=== PATIENT | male | born 1955 | race Caucasian/White ===

== ENCOUNTER 2020-02-10 02:31 | Inpatient (IN) | payer BC, MEDICAID, SELFPAY ==
[~2020-02-10] VITALS: Ht 182.9 cm; Wt 94.8 kg
[2020-02-10 02:31] VITALS: BP_SYST 152
[2020-02-10] MEDS ORDERED: AZITHROMYCIN 250 MG TABLET PO ONE (03:00)
[2020-02-10] MEDS ORDERED: cefTRIAXone 1 GM in LIDOCAINE 1%, 20 ML MDV 2.1 ML IM ONE (03:00)
[2020-02-10 03:47] LABS: CALCIUM 7.8 mg/dL (8.4-11.0); CREATININE 2.13 mg/dL (0.55-1.30); POTASSIUM 4.1 mmol/L (3.5-5.1)
[2020-02-10 03:48] LABS: C-REACTIVE PROTEIN QUANT 10.2 mg/dL (0-0.5)
[2020-02-10 03:49] LABS: BASOPHILS % (AUTO) 0.1 % (0.0-2.0); EOSINOPHILS % (AUTO) 0.1 % (0.0-4.0); HEMOGLOBIN 14.6 g/dL (14.0-18.0); LYMPHOCYTES # (AUTO) 0.4 K/uL (1.0-5.5); LYMPHOCYTES % (AUTO) 5.4 % (20.5-51.5); MEAN CORPUSCULAR HEMOGLOBIN 31 pg (27-31); MEAN CORPUSCULAR HGB CONC 34 % (32-36); MEAN CORPUSCULAR VOLUME 92 fL (79.0-98.0); MONOCYTES # (AUTO) 0.6 K/uL (0.0-1.0); MONOCYTES % (AUTO) 6.6 % (1.7-9.3); NEUTROPHILS # (AUTO) 7.3 K/uL (1.8-7.7); NEUTROPHILS % (AUTO) 87.8 % (40.0-70.0); PLATELET COUNT (AUTO) 144 K/uL (130-430); RED BLOOD CELL COUNT(AUTO) 4.67 MIL/uL (4.2-6.2); RED CELL DISTRIBUTION WIDTH 14.2 % (9.0-15.0); WHITE BLOOD COUNT (AUTO) 8.3 K/uL (4.8-10.8)
[2020-02-10 03:53] LABS: ALBUMIN 2.5 g/dL (3.4-4.8); TOTAL BILIRUBIN 1.6 mg/dL (0.0-1.0)
[2020-02-10 04:13] LABS: PROTHROMBIN TIME 9.9 SECS (9.5-12.5)
[2020-02-10] MEDS ORDERED: ACETAMINOPHEN 500 MG TABLET PO ONE (04:15)
[2020-02-10] MEDS ORDERED: cefTRIAXone 1 GM VIAL ONE (05:46)
[2020-02-10] MEDS ORDERED: LIDOCAINE 1%, 20 ML MDV 20 ML ONE (05:46)
[2020-02-10] MEDS ORDERED: AZITHROMYCIN 250 MG TABLET ONE (05:47)
[2020-02-10] MEDS ORDERED: DEXAMETHASONE SOD PHOSPHATE 4 MG/ML VIAL IVP ONE (06:15)
[2020-02-10] MEDS ORDERED: MORPHINE 2 MG/ML INJ. SYRINGE IVP ONE (06:15)
[2020-02-10] MEDS ORDERED: ONDANSETRON HCL 4 MG/2 ML VIAL IVP PRN (20:00)
[2020-02-10] MEDS: D5/0.45 NS 1,000 ML IV SCH (20:30)
[2020-02-10] MEDS ORDERED: ALBUTEROL SULFATE 0.083% 2.5 MG/3 ML VIAL.NEB INH SCH (23:00)
[2020-02-10] MEDS ORDERED: IPRATROPIUM BROM 0.5 MG/2.5 ML VIAL.NEB (ATROVENT) INH SCH (23:00)
[2020-02-11] MEDS ORDERED: LORazepam 2 MG/ML VIAL ONE
[2020-02-11] MEDS: LORazepam 2 MG/ML VIAL IVP PRN (00:08)
[2020-02-11 01:47] VITALS: BP_SYST 157
[2020-02-11 06:35] LABS: BASOPHILS % (AUTO) 0.3 % (0.0-2.0); HEMATOCRIT 42.2 % (36-54); HEMOGLOBIN 14.6 g/dL (14.0-18.0); LYMPHOCYTES # (AUTO) 0.3 K/uL (1.0-5.5); LYMPHOCYTES % (AUTO) 3.3 % (20.5-51.5); MEAN CORPUSCULAR HEMOGLOBIN 32 pg (27-31); MEAN CORPUSCULAR HGB CONC 35 % (32-36); MEAN CORPUSCULAR VOLUME 91 fL (79.0-98.0); MONOCYTES # (AUTO) 0.6 K/uL (0.0-1.0); MONOCYTES % (AUTO) 5.7 % (1.7-9.3); NEUTROPHILS # (AUTO) 9.6 K/uL (1.8-7.7); NEUTROPHILS % (AUTO) 90.7 % (40.0-70.0); PLATELET COUNT (AUTO) 154 K/uL (130-430); RED BLOOD CELL COUNT(AUTO) 4.62 MIL/uL (4.2-6.2); RED CELL DISTRIBUTION WIDTH 13.7 % (9.0-15.0)
[2020-02-11] MEDS: D5/0.45 NS 1,000 ML IV SCH ×2 (06:51→13:49)
[2020-02-11 06:58] LABS: ALBUMIN 2.2 g/dL (3.4-4.8); CALCIUM 7.9 mg/dL (8.4-11.0); CREATININE 1.9 mg/dL (0.55-1.30); PHOSPHORUS 2.1 mg/dL (2.7-4.5); POTASSIUM 4.4 mmol/L (3.5-5.1); TOTAL BILIRUBIN 1.1 mg/dL (0.0-1.0)
[2020-02-11 07:44] LABS: C-REACTIVE PROTEIN QUANT 13.1 mg/dL (0-0.5)
[2020-02-11] MEDS ORDERED: cefTRIAXone 1 GM IVPB PREMIX 50 ML IV ONE (07:54)
[2020-02-11] MEDS: cefTRIAXone 1 GM IVPB PREMIX 50 ML IV SCH (07:55)
[2020-02-11 07:58] LABS: WHITE BLOOD COUNT (AUTO) 10.5 K/uL (4.8-10.8)
[2020-02-11] MEDS: ALBUTEROL MDI INHALATION 8 GM INH INH SCH ×5 (08:05→23:33)
[2020-02-11 08:55] LABS: BILIRUBIN,URINE NEGATIVE (NEGATIVE); BLOOD, URINE 1+ (NEGATIVE); COLOR,URINE YELLOW (YELLOW); GLUCOSE,URINE 3+ (NEGATIVE); KETONES,URINE TRACE (NEGATIVE); LEUKOCYTE ESTERASE ,URINE NEGATIVE (NEGATIVE); NITRITE, URINE NEGATIVE (NEGATIVE); PROTEIN URINE 2+ (NEGATIVE); UROBILINOGEN,URINE 0.2 (0.2-1.0)
[2020-02-11 08:56] LABS: CLARITY/URINE SLIGHTLY CLOUDY (CLEAR)
[2020-02-11 09:46] LABS: ERYTHROCYTE SEDIMENTATION RATE 64 MM/HR (0-15)
[2020-02-11] MEDS: AZITHROMYCIN 500 MG in NS 250 ML IV SCH (09:48)
[2020-02-11 10:36] LABS: BACTERIA,URINE FEW /HPF (None Seen); FINE GRANULAR CASTS,URINE 0-10 /LPF (None Seen); WBC,URINE 0-3 /HPF (0-3)
[2020-02-11] MEDS ORDERED: ALBUTEROL SULFATE 0.083% 2.5 MG/3 ML VIAL.NEB INH PRN (11:00)
[2020-02-11] MEDS ORDERED: IPRATROPIUM BROM 0.5 MG/2.5 ML VIAL.NEB (ATROVENT) INH PRN (11:00)
[2020-02-11] MEDS ORDERED: NA PHOS 15 MM in NS 250 ML IV ONE (12:30)
[2020-02-11] MEDS: DEXAMETHASONE SOD PHOSPHATE 10 MG/ML VIAL IVP SCH (13:40)
[2020-02-11] MEDS ORDERED: HEPARIN SODIUM,PORCINE 5,000 UNITS/ML VIAL ONE (20:03)
[2020-02-11] MEDS: HEPARIN SODIUM,PORCINE 5,000 UNITS/ML VIAL SUBCUT SCH (20:07)
[2020-02-12] MEDS: D5/0.45 NS 1,000 ML IV SCH (02:29)
[2020-02-12] MEDS: ALBUTEROL MDI INHALATION 8 GM INH INH SCH ×6 (03:08→23:40)
[2020-02-12 05:57] LABS: CALCIUM 7.7 mg/dL (8.4-11.0); CREATININE 1.6 mg/dL (0.55-1.30); PHOSPHORUS 3.3 mg/dL (2.7-4.5); POTASSIUM 4.9 mmol/L (3.5-5.1)
[2020-02-12 06:00] LABS: BASOPHILS % (AUTO) 0.1 % (0.0-2.0); EOSINOPHILS % (AUTO) 0.1 % (0.0-4.0); HEMOGLOBIN 13.6 g/dL (14.0-18.0); LYMPHOCYTES # (AUTO) 0.3 K/uL (1.0-5.5); LYMPHOCYTES % (AUTO) 5.1 % (20.5-51.5); MEAN CORPUSCULAR HEMOGLOBIN 31 pg (27-31); MEAN CORPUSCULAR HGB CONC 34 % (32-36); MEAN CORPUSCULAR VOLUME 92 fL (79.0-98.0); MONOCYTES # (AUTO) 0.4 K/uL (0.0-1.0); MONOCYTES % (AUTO) 7.8 % (1.7-9.3); NEUTROPHILS # (AUTO) 4.7 K/uL (1.8-7.7); NEUTROPHILS % (AUTO) 86.9 % (40.0-70.0); PLATELET COUNT (AUTO) 160 K/uL (130-430); RED BLOOD CELL COUNT(AUTO) 4.36 MIL/uL (4.2-6.2); RED CELL DISTRIBUTION WIDTH 13.9 % (9.0-15.0); WHITE BLOOD COUNT (AUTO) 5.4 K/uL (4.8-10.8)
[2020-02-12 08:13] LABS: ERYTHROCYTE SEDIMENTATION RATE 72 MM/HR (0-15)
[2020-02-12] MEDS ORDERED: INSULIN REGULAR, HUMAN 10 UNITS/0.1 ML INJ ONE ×3 (08:49→17:10)
[2020-02-12] MEDS: INSULIN REGULAR, HUMAN 100 UNITS/ML, 10 ML VIAL (humuLIN R) SUBCUT PRN ×3 (08:51→17:09)
[2020-02-12] MEDS: cefTRIAXone 1 GM IVPB PREMIX 50 ML IV SCH (10:13)
[2020-02-12] MEDS: AZITHROMYCIN 500 MG in NS 250 ML IV SCH (10:13)
[2020-02-12] MEDS: HEPARIN SODIUM,PORCINE 5,000 UNITS/ML VIAL SUBCUT SCH ×2 (10:15→20:57)
[2020-02-12] MEDS: DEXAMETHASONE SOD PHOSPHATE 10 MG/ML VIAL IVP SCH (14:00)
[2020-02-12] MEDS: NACL 0.9% 1,000 ML IV SCH ×2 (14:01→22:50)
[2020-02-12] MEDS: LORazepam 2 MG/ML VIAL IVP PRN ×2 (17:11→22:34)
[2020-02-12] MEDS ORDERED: LORazepam 2 MG/ML VIAL ONE ×2 (17:11→22:31)
[2020-02-12] MEDS ORDERED: BACLOFEN 10 MG TABLET ONE (20:23)
[2020-02-12] MEDS ORDERED: HEPARIN SODIUM,PORCINE 5,000 UNITS/ML VIAL ONE (20:56)
[2020-02-12] MEDS: BACLOFEN 10 MG TABLET PO PRN (20:56)
[2020-02-12] MEDS: ASCORBIC ACID 500 MG TABLET PO SCH (20:57)
[2020-02-12] MEDS ORDERED: GABAPENTIN 300 MG CAPSULE ONE (22:48)
[2020-02-12] MEDS: GABAPENTIN 300 MG CAPSULE PO SCH (22:50)
[2020-02-13] MEDS: ALBUTEROL MDI INHALATION 8 GM INH INH SCH ×5 (02:37→22:52)
[2020-02-13] MEDS ORDERED: LORazepam 2 MG/ML VIAL ONE (07:25)
[2020-02-13] MEDS ORDERED: INSULIN NPH/REGULAR 70-30, 100 UNITS/ML, 10 ML VIAL ONE (07:28)
[2020-02-13] MEDS: NACL 0.9% 1,000 ML IV SCH ×2 (07:33→17:16)
[2020-02-13] MEDS: cefTRIAXone 1 GM IVPB PREMIX 50 ML IV SCH (07:38)
[2020-02-13 08:09] LABS: BASOPHILS % (AUTO) 0.2 % (0.0-2.0); HEMATOCRIT 42.1 % (36-54); HEMOGLOBIN 14.4 g/dL (14.0-18.0); LYMPHOCYTES # (AUTO) 0.5 K/uL (1.0-5.5); LYMPHOCYTES % (AUTO) 4.6 % (20.5-51.5); MEAN CORPUSCULAR HEMOGLOBIN 31 pg (27-31); MEAN CORPUSCULAR HGB CONC 34 % (32-36); MEAN CORPUSCULAR VOLUME 92 fL (79.0-98.0); MONOCYTES # (AUTO) 0.6 K/uL (0.0-1.0); MONOCYTES % (AUTO) 6.3 % (1.7-9.3); NEUTROPHILS % (AUTO) 88.9 % (40.0-70.0); PLATELET COUNT (AUTO) 188 K/uL (130-430); RED BLOOD CELL COUNT(AUTO) 4.59 MIL/uL (4.2-6.2); RED CELL DISTRIBUTION WIDTH 13.9 % (9.0-15.0)
[2020-02-13 08:15] LABS: WHITE BLOOD COUNT (AUTO) 10.1 K/uL (4.8-10.8)
[2020-02-13 08:51] LABS: CALCIUM 8.1 mg/dL (8.4-11.0); CREATININE 1.35 mg/dL (0.55-1.30); POTASSIUM 4.2 mmol/L (3.5-5.1); TOTAL BILIRUBIN 1.3 mg/dL (0.0-1.0)
[2020-02-13 08:56] LABS: INR 1.1 (0.80-1.20); PROTHROMBIN TIME 10.9 SECS (9.5-12.5)
[2020-02-13] MEDS: GABAPENTIN 300 MG CAPSULE PO SCH ×3 (09:00→21:29)
[2020-02-13] MEDS: CHOLECALCIFEROL (VITAMIN D3) 5,000 UNIT TABLET PO SCH (09:00)
[2020-02-13] MEDS: ASCORBIC ACID 500 MG TABLET PO SCH ×2 (09:00→21:29)
[2020-02-13 09:46] LABS: ERYTHROCYTE SEDIMENTATION RATE 61 MM/HR (0-15)
[2020-02-13] MEDS ORDERED: HEPARIN SODIUM,PORCINE 5,000 UNITS/ML VIAL ONE ×2 (09:53→21:19)
[2020-02-13] MEDS: HEPARIN SODIUM,PORCINE 5,000 UNITS/ML VIAL SUBCUT SCH ×2 (09:56→21:31)
[2020-02-13] MEDS: AZITHROMYCIN 500 MG in NS 250 ML IV SCH (09:58)
[2020-02-13 10:36] LABS: C-REACTIVE PROTEIN QUANT 14.1 mg/dL (0-0.5)
[2020-02-13] MEDS: INSULIN REGULAR, HUMAN 100 UNITS/ML, 10 ML VIAL (humuLIN R) SUBCUT PRN ×3 (11:47→21:54)
[2020-02-13] MEDS ORDERED: DEXAMETHASONE SOD PHOSPHATE 10 MG/ML VIAL ONE (12:52)
[2020-02-13] MEDS: DEXAMETHASONE SOD PHOSPHATE 10 MG/ML VIAL IVP SCH (13:07)
[2020-02-13] MEDS ORDERED: GABAPENTIN 300 MG CAPSULE ONE (21:20)
[2020-02-13] MEDS ORDERED: INSULIN REGULAR, HUMAN 10 UNITS/0.1 ML INJ ONE (21:43)
[2020-02-14] MEDS: NACL 0.9% 1,000 ML IV SCH ×2 (04:53→16:39)
[2020-02-14 05:05] LABS: BASOPHILS % (AUTO) 0.1 % (0.0-2.0); HEMATOCRIT 39.9 % (36-54); HEMOGLOBIN 13.6 g/dL (14.0-18.0); LYMPHOCYTES # (AUTO) 0.3 K/uL (1.0-5.5); LYMPHOCYTES % (AUTO) 2.9 % (20.5-51.5); MEAN CORPUSCULAR HEMOGLOBIN 31 pg (27-31); MEAN CORPUSCULAR HGB CONC 34 % (32-36); MEAN CORPUSCULAR VOLUME 92 fL (79.0-98.0); MONOCYTES # (AUTO) 0.5 K/uL (0.0-1.0); MONOCYTES % (AUTO) 5.4 % (1.7-9.3); NEUTROPHILS # (AUTO) 9.1 K/uL (1.8-7.7); NEUTROPHILS % (AUTO) 91.6 % (40.0-70.0); PLATELET COUNT (AUTO) 185 K/uL (130-430); RED BLOOD CELL COUNT(AUTO) 4.33 MIL/uL (4.2-6.2); RED CELL DISTRIBUTION WIDTH 14.1 % (9.0-15.0); WHITE BLOOD COUNT (AUTO) 9.9 K/uL (4.8-10.8)
[2020-02-14 06:21] LABS: ERYTHROCYTE SEDIMENTATION RATE 50 MM/HR (0-15)
[2020-02-14] MEDS: INSULIN REGULAR, HUMAN 100 UNITS/ML, 10 ML VIAL (humuLIN R) SUBCUT PRN ×4 (07:40→20:54)
[2020-02-14] MEDS ORDERED: INSULIN REGULAR, HUMAN 10 UNITS/0.1 ML INJ ONE (07:40)
[2020-02-14] MEDS ORDERED: HEPARIN SODIUM,PORCINE 5,000 UNITS/ML VIAL ONE ×2 (07:46→20:23)
[2020-02-14] MEDS: cefTRIAXone 1 GM IVPB PREMIX 50 ML IV SCH (08:05)
[2020-02-14] MEDS: CHOLECALCIFEROL (VITAMIN D3) 5,000 UNIT TABLET PO SCH (08:06)
[2020-02-14] MEDS: GABAPENTIN 300 MG CAPSULE PO SCH ×3 (08:06→20:38)
[2020-02-14] MEDS: ASCORBIC ACID 500 MG TABLET PO SCH ×2 (08:06→20:38)
[2020-02-14] MEDS: HEPARIN SODIUM,PORCINE 5,000 UNITS/ML VIAL SUBCUT SCH ×2 (08:09→20:43)
[2020-02-14] MEDS: ALBUTEROL MDI INHALATION 8 GM INH INH SCH ×4 (08:28→21:57)
[2020-02-14 09:11] LABS: ALBUMIN 1.9 g/dL (3.4-4.8); CALCIUM 7.6 mg/dL (8.4-11.0); CREATININE 1.36 mg/dL (0.55-1.30); POTASSIUM 4.2 mmol/L (3.5-5.1)
[2020-02-14] MEDS: AZITHROMYCIN 500 MG in NS 250 ML IV SCH (09:38)
[2020-02-14] MEDS: DEXAMETHASONE SOD PHOSPHATE 10 MG/ML VIAL IVP SCH (11:45)
[2020-02-14 19:00] VITALS: BP_SYST 151
[2020-02-14 20:00] VITALS: BP_SYST 182
[2020-02-14] MEDS ORDERED: GABAPENTIN 300 MG CAPSULE ONE (20:21)
[2020-02-14] MEDS ORDERED: INSULIN Lispro 100 UNITS/ML VIAL (humaLOG) ONE (20:53)
[2020-02-14 21:00] VITALS: BP_SYST 176
[2020-02-14 22:00] VITALS: BP_SYST 158
[2020-02-14 23:00] VITALS: BP_SYST 150
[2020-02-15] VITALS (7 sets, daily range): BP systolic 142–170
[2020-02-15] MEDS: NACL 0.9% 1,000 ML IV SCH ×3 (01:16→20:48)
[2020-02-15] MEDS: ALBUTEROL MDI INHALATION 8 GM INH INH SCH ×3 (03:00→23:25)
[2020-02-15 04:53] LABS: BASOPHILS % (AUTO) 0.3 % (0.0-2.0); HEMATOCRIT 38.4 % (36-54); HEMOGLOBIN 13.2 g/dL (14.0-18.0); LYMPHOCYTES # (AUTO) 0.3 K/uL (1.0-5.5); MEAN CORPUSCULAR HEMOGLOBIN 31 pg (27-31); MEAN CORPUSCULAR HGB CONC 34 % (32-36); MEAN CORPUSCULAR VOLUME 92 fL (79.0-98.0); MONOCYTES # (AUTO) 0.6 K/uL (0.0-1.0); MONOCYTES % (AUTO) 4.3 % (1.7-9.3); NEUTROPHILS # (AUTO) 12.8 K/uL (1.8-7.7); NEUTROPHILS % (AUTO) 93.4 % (40.0-70.0); PLATELET COUNT (AUTO) 176 K/uL (130-430); RED CELL DISTRIBUTION WIDTH 14.4 % (9.0-15.0); WHITE BLOOD COUNT (AUTO) 13.7 K/uL (4.8-10.8)
[2020-02-15 05:18] LABS: PHOSPHORUS 2.8 mg/dL (2.7-4.5)
[2020-02-15 05:19] LABS: ALBUMIN 1.9 g/dL (3.4-4.8); CALCIUM 7.8 mg/dL (8.4-11.0); CREATININE 1.39 mg/dL (0.55-1.30); POTASSIUM 4.2 mmol/L (3.5-5.1)
[2020-02-15 05:39] LABS: ERYTHROCYTE SEDIMENTATION RATE 20 MM/HR (0-15)
[2020-02-15 05:49] LABS: C-REACTIVE PROTEIN QUANT 9.3 mg/dL (0-0.5)
[2020-02-15] MEDS ORDERED: INSULIN NPH/REGULAR 70-30, 100 UNITS/ML, 10 ML VIAL ONE (06:14)
[2020-02-15] MEDS: INSULIN REGULAR, HUMAN 100 UNITS/ML, 10 ML VIAL (humuLIN R) SUBCUT PRN ×4 (06:17→21:55)
[2020-02-15] MEDS: cefTRIAXone 1 GM IVPB PREMIX 50 ML IV SCH (08:07)
[2020-02-15] MEDS: ASCORBIC ACID 500 MG TABLET PO SCH ×2 (08:07→20:49)
[2020-02-15] MEDS: CHOLECALCIFEROL (VITAMIN D3) 5,000 UNIT TABLET PO SCH (08:07)
[2020-02-15] MEDS: GABAPENTIN 300 MG CAPSULE PO SCH ×3 (08:07→20:49)
[2020-02-15] MEDS: HEPARIN SODIUM,PORCINE 5,000 UNITS/ML VIAL SUBCUT SCH ×2 (08:08→20:50)
[2020-02-15] MEDS ORDERED: DEXAMETHASONE SOD PHOSPHATE 10 MG/ML VIAL IVP ONE (09:00)
[2020-02-15] MEDS: AZITHROMYCIN 500 MG in NS 250 ML IV SCH (10:31)
[2020-02-15] MEDS ORDERED: INSULIN REGULAR, HUMAN 10 UNITS/0.1 ML INJ ONE ×2 (12:21→18:08)
[2020-02-15] MEDS: DEXAMETHASONE SOD PHOSPHATE 10 MG/ML VIAL IVP SCH (12:24)
[2020-02-15] MEDS ORDERED: LORazepam 2 MG/ML VIAL ONE (22:44)
[2020-02-15] MEDS: LORazepam 2 MG/ML VIAL IVP PRN (22:47)
[2020-02-15] MEDS ORDERED: cloNIDine HCL 0.1 MG TABLET ONE (23:41)
[2020-02-15] MEDS ORDERED: cloNIDine HCL 0.1 MG TABLET PO PRN (23:45)
[2020-02-16] MEDS: ALBUTEROL MDI INHALATION 8 GM INH INH SCH ×4 (04:12→15:52)
[2020-02-16] MEDS: NACL 0.9% 1,000 ML IV SCH ×2 (05:12→16:00)
[2020-02-16] MEDS ORDERED: INSULIN REGULAR, HUMAN 10 UNITS/0.1 ML INJ ONE ×4 (07:36→21:30)
[2020-02-16] MEDS: INSULIN REGULAR, HUMAN 100 UNITS/ML, 10 ML VIAL (humuLIN R) SUBCUT PRN ×4 (07:49→21:38)
[2020-02-16] MEDS: cefTRIAXone 1 GM IVPB PREMIX 50 ML IV SCH (09:26)
[2020-02-16] MEDS: ASCORBIC ACID 500 MG TABLET PO SCH ×2 (09:27→21:35)
[2020-02-16] MEDS: GABAPENTIN 300 MG CAPSULE PO SCH (09:27)
[2020-02-16] MEDS: CHOLECALCIFEROL (VITAMIN D3) 5,000 UNIT TABLET PO SCH (09:32)
[2020-02-16] MEDS ORDERED: HEPARIN SODIUM,PORCINE 5,000 UNITS/ML VIAL ONE (09:34)
[2020-02-16 10:22] LABS: BASOPHILS % (AUTO) 0.1 % (0.0-2.0); HEMATOCRIT 41.4 % (36-54); HEMOGLOBIN 13.7 g/dL (14.0-18.0); LYMPHOCYTES # (AUTO) 0.3 K/uL (1.0-5.5); LYMPHOCYTES % (AUTO) 1.5 % (20.5-51.5); MEAN CORPUSCULAR HEMOGLOBIN 30 pg (27-31); MEAN CORPUSCULAR HGB CONC 33 % (32-36); MEAN CORPUSCULAR VOLUME 92 fL (79.0-98.0); MONOCYTES # (AUTO) 0.8 K/uL (0.0-1.0); MONOCYTES % (AUTO) 4.6 % (1.7-9.3); NEUTROPHILS # (AUTO) 16.5 K/uL (1.8-7.7); NEUTROPHILS % (AUTO) 93.8 % (40.0-70.0); PLATELET COUNT (AUTO) 143 K/uL (130-430); RED BLOOD CELL COUNT(AUTO) 4.52 MIL/uL (4.2-6.2); RED CELL DISTRIBUTION WIDTH 13.9 % (9.0-15.0); WHITE BLOOD COUNT (AUTO) 17.6 K/uL (4.8-10.8)
[2020-02-16 10:29] LABS: CALCIUM 7.8 mg/dL (8.4-11.0); CREATININE 1.23 mg/dL (0.55-1.30); POTASSIUM 4.3 mmol/L (3.5-5.1); TOTAL BILIRUBIN 1.2 mg/dL (0.0-1.0)
[2020-02-16 10:42] LABS: C-REACTIVE PROTEIN QUANT 6.1 mg/dL (0-0.5)
[2020-02-16 11:48] LABS: ERYTHROCYTE SEDIMENTATION RATE 12 MM/HR (0-15)
[2020-02-16] MEDS: HEPARIN SODIUM,PORCINE 5,000 UNITS/ML VIAL SUBCUT SCH ×2 (12:21→21:36)
[2020-02-16] MEDS: DEXAMETHASONE SOD PHOSPHATE 10 MG/ML VIAL IVP SCH (13:25)
[2020-02-17] MEDS: NACL 0.9% 1,000 ML IV SCH ×2 (06:30→12:45)
[2020-02-17 07:15] VITALS: BP_SYST 124
[2020-02-17] MEDS: ALBUTEROL MDI INHALATION 8 GM INH INH SCH ×5 (07:15→22:29)
[2020-02-17] MEDS: INSULIN REGULAR, HUMAN 100 UNITS/ML, 10 ML VIAL (humuLIN R) SUBCUT PRN ×2 (08:02→13:03)
[2020-02-17 09:27] LABS: BASOPHILS % (AUTO) 0.2 % (0.0-2.0); EOSINOPHILS % (AUTO) 0.1 % (0.0-4.0); HEMOGLOBIN 13.7 g/dL (14.0-18.0); LYMPHOCYTES # (AUTO) 0.4 K/uL (1.0-5.5); LYMPHOCYTES % (AUTO) 2.3 % (20.5-51.5); MEAN CORPUSCULAR HEMOGLOBIN 31 pg (27-31); MEAN CORPUSCULAR HGB CONC 33 % (32-36); MEAN CORPUSCULAR VOLUME 92 fL (79.0-98.0); MONOCYTES # (AUTO) 0.7 K/uL (0.0-1.0); MONOCYTES % (AUTO) 3.9 % (1.7-9.3); NEUTROPHILS # (AUTO) 16.1 K/uL (1.8-7.7); NEUTROPHILS % (AUTO) 93.5 % (40.0-70.0); PLATELET COUNT (AUTO) 121 K/uL (130-430); RED BLOOD CELL COUNT(AUTO) 4.48 MIL/uL (4.2-6.2); RED CELL DISTRIBUTION WIDTH 14.2 % (9.0-15.0); WHITE BLOOD COUNT (AUTO) 17.3 K/uL (4.8-10.8)
[2020-02-17 09:48] LABS: ALBUMIN 2.1 g/dL (3.4-4.8); CREATININE 1.42 mg/dL (0.55-1.30); POTASSIUM 4.5 mmol/L (3.5-5.1); TOTAL BILIRUBIN 1.3 mg/dL (0.0-1.0)
[2020-02-17] MEDS ORDERED: cefTRIAXone 1 GM IVPB PREMIX 50 ML IV ONE (09:57)
[2020-02-17] MEDS: cefTRIAXone 1 GM IVPB PREMIX 50 ML IV SCH (10:16)
[2020-02-17] MEDS: CHOLECALCIFEROL (VITAMIN D3) 5,000 UNIT TABLET PO SCH (10:16)
[2020-02-17] MEDS: ASCORBIC ACID 500 MG TABLET PO SCH ×2 (10:16→21:00)
[2020-02-17] MEDS: HEPARIN SODIUM,PORCINE 5,000 UNITS/ML VIAL SUBCUT SCH ×2 (10:19→21:00)
[2020-02-17 11:07] LABS: ERYTHROCYTE SEDIMENTATION RATE 11 MM/HR (0-15)
[2020-02-17] MEDS: DEXAMETHASONE SOD PHOSPHATE 10 MG/ML VIAL IVP SCH (12:42)
[2020-02-17] MEDS: BACLOFEN 10 MG TABLET PO PRN (14:16)
[2020-02-18] MEDS ORDERED: INSULIN REGULAR, HUMAN 10 UNITS/0.1 ML INJ ONE (00:23)
[2020-02-18] MEDS: NACL 0.9% 1,000 ML IV SCH ×3 (00:29→18:38)
[2020-02-18] MEDS: INSULIN REGULAR, HUMAN 100 UNITS/ML, 10 ML VIAL (humuLIN R) SUBCUT PRN ×4 (00:34→16:55)
[2020-02-18] MEDS: ALBUTEROL MDI INHALATION 8 GM INH INH SCH ×6 (03:55→22:52)
[2020-02-18] MEDS ORDERED: cloNIDine HCL 0.1 MG TABLET ONE (04:28)
[2020-02-18 05:09] LABS: BASOPHILS # (AUTO) 0.1 K/uL (0.0-0.2); BASOPHILS % (AUTO) 0.6 % (0.0-2.0); HEMATOCRIT 41.2 % (36-54); HEMOGLOBIN 13.8 g/dL (14.0-18.0); LYMPHOCYTES # (AUTO) 0.3 K/uL (1.0-5.5); LYMPHOCYTES % (AUTO) 1.9 % (20.5-51.5); MEAN CORPUSCULAR HEMOGLOBIN 31 pg (27-31); MEAN CORPUSCULAR HGB CONC 34 % (32-36); MEAN CORPUSCULAR VOLUME 92 fL (79.0-98.0); MONOCYTES # (AUTO) 0.5 K/uL (0.0-1.0); MONOCYTES % (AUTO) 3.3 % (1.7-9.3); NEUTROPHILS # (AUTO) 13.7 K/uL (1.8-7.7); NEUTROPHILS % (AUTO) 94.2 % (40.0-70.0); PLATELET COUNT (AUTO) 112 K/uL (130-430); RED BLOOD CELL COUNT(AUTO) 4.49 MIL/uL (4.2-6.2); RED CELL DISTRIBUTION WIDTH 14.4 % (9.0-15.0); WHITE BLOOD COUNT (AUTO) 14.6 K/uL (4.8-10.8)
[2020-02-18 05:33] LABS: CALCIUM 7.8 mg/dL (8.4-11.0); CREATININE 1.39 mg/dL (0.55-1.30); POTASSIUM 4.9 mmol/L (3.5-5.1); TOTAL BILIRUBIN 1.3 mg/dL (0.0-1.0)
[2020-02-18 05:40] LABS: C-REACTIVE PROTEIN QUANT 12.8 mg/dL (0-0.5)
[2020-02-18 05:52] LABS: ERYTHROCYTE SEDIMENTATION RATE 9 MM/HR (0-15)
[2020-02-18] MEDS ORDERED: hydrALAZINE HCL 20 MG/ML VIAL ONE (05:54)
[2020-02-18] MEDS: hydrALAZINE HCL 20 MG/ML VIAL IVP PRN (06:05)
[2020-02-18] MEDS: ASCORBIC ACID 500 MG TABLET PO SCH ×2 (08:44→21:00)
[2020-02-18] MEDS: cefTRIAXone 1 GM IVPB PREMIX 50 ML IV SCH (08:44)
[2020-02-18] MEDS: CHOLECALCIFEROL (VITAMIN D3) 5,000 UNIT TABLET PO SCH (08:44)
[2020-02-18] MEDS: HEPARIN SODIUM,PORCINE 5,000 UNITS/ML VIAL SUBCUT SCH (08:50)
[2020-02-18] MEDS: DEXAMETHASONE SOD PHOSPHATE 10 MG/ML VIAL IVP SCH (12:33)
[2020-02-18 14:15] VITALS: BP_SYST 130
[2020-02-18] MEDS ORDERED: PROPOFOL DRIP 100 ML IV PRN (14:45)
[2020-02-18] MEDS ORDERED: HYDROMORPHONE HCL IN 0.9% NACL 100 ML IV PRN (16:30)
[2020-02-18 19:56] VITALS: BP_SYST 95
[2020-02-18 22:49] VITALS: BP_SYST 105
[2020-02-18] MEDS: LORazepam 2 MG/ML VIAL IVP PRN (23:45)
[2020-02-19] VITALS (9 sets, daily range): BP systolic 89–116
[2020-02-19] MEDS ORDERED: MORPHINE IV ONE (04:22)
[2020-02-19] MEDS: NACL 0.9% 1,000 ML IV SCH (04:45)
[2020-02-19] MEDS ORDERED: NACL 0.9% 1,000 ML IV ONE (05:15)
[2020-02-19] MEDS ORDERED: fentaNYL CITRATE/PF 100 MCG/2 ML AMP IVP ONE (05:15)
[2020-02-19] MEDS ORDERED: *HEPARIN PER PHARMACY XX PRN (06:45)
[2020-02-19] MEDS ORDERED: HEPARIN SODIUM,PORCINE 5,000 UNITS/ML VIAL SUBCUT SCH ×3 (06:45→09:00)
[2020-02-19] MEDS ORDERED: AMIODARONE HCL 450 MG in D5W 241 ML IV SCH (07:00)
[2020-02-19] MEDS ORDERED: AMIODARONE HCL 150 MG/3ML VIAL IVP ONE (07:00)
[2020-02-19 07:05] LABS: HEMATOCRIT 41.5 % (36-54); HEMOGLOBIN 13.6 g/dL (14.0-18.0); MEAN CORPUSCULAR HEMOGLOBIN 31 pg (27-31); MEAN CORPUSCULAR HGB CONC 33 % (32-36); MEAN CORPUSCULAR VOLUME 93 fL (79.0-98.0); PLATELET COUNT (AUTO) 116 K/uL (130-430); RED BLOOD CELL COUNT(AUTO) 4.46 MIL/uL (4.2-6.2); RED CELL DISTRIBUTION WIDTH 14.4 % (9.0-15.0); WHITE BLOOD COUNT (AUTO) 23.3 K/uL (4.8-10.8)
[2020-02-19 07:41] LABS: ALBUMIN 1.8 g/dL (3.4-4.8); CALCIUM 7.6 mg/dL (8.4-11.0); CREATININE 2.39 mg/dL (0.55-1.30); PHOSPHORUS 4.4 mg/dL (2.7-4.5); POTASSIUM 4.9 mmol/L (3.5-5.1)
[2020-02-19] MEDS: PROPOFOL DRIP 100 ML IV PRN ×2 (07:45→12:08)
[2020-02-19] MEDS ORDERED: ENOXAPARIN SODIUM 40 MG/0.4 ML SYRINGE SUBCUT SCH (09:00)
[2020-02-19] MEDS: CHOLECALCIFEROL (VITAMIN D3) 5,000 UNIT TABLET PO SCH (09:30)
[2020-02-19] MEDS: ASCORBIC ACID 500 MG TABLET PO SCH ×2 (09:30→21:24)
[2020-02-19] MEDS: cefTRIAXone 1 GM IVPB PREMIX 50 ML IV SCH (09:30)
[2020-02-19] MEDS ORDERED: MORPHINE I.V. DRIP 100 ML IV ONE (11:52)
[2020-02-19] MEDS: SODIUM BICARBONATE 8.4% VIAL 50 MEQ in 0.45% NACL 1,000 ML IV SCH ×2 (12:00→21:24)
[2020-02-19] MEDS: INSULIN REGULAR, HUMAN 100 UNITS/ML, 10 ML VIAL (humuLIN R) SUBCUT PRN ×3 (12:12→21:34)
[2020-02-19] MEDS: DEXAMETHASONE SOD PHOSPHATE 10 MG/ML VIAL IVP SCH (13:03)
[2020-02-19 16:00] LABS: BAND % (MANUAL) 4 % (0-6)
[2020-02-19 16:01] LABS: MONOCYTES % (MANUAL) 3 % (0-11)
[2020-02-19 16:02] LABS: BASOPHILS % (MANUAL) 0 % (0-2); EOSINOPHILS % (MANUAL) 0 % (0-7)
[2020-02-19] MEDS: NOREPINEPHRINE BITARTRATE 8 MG in NS 242 ML IV PRN (19:32)
[2020-02-19] MEDS ORDERED: INSULIN REGULAR, HUMAN 10 UNITS/0.1 ML INJ ONE (21:32)
[2020-02-20] VITALS (19 sets, daily range): BP systolic 97–134
[2020-02-20] MEDS: PROPOFOL DRIP 100 ML IV PRN ×2 (04:19→20:30)
[2020-02-20] MEDS ORDERED: INSULIN REGULAR, HUMAN 10 UNITS/0.1 ML INJ ONE (07:06)
[2020-02-20] MEDS: INSULIN REGULAR, HUMAN 100 UNITS/ML, 10 ML VIAL (humuLIN R) SUBCUT PRN ×3 (07:12→20:39)
[2020-02-20] MEDS: ALBUTEROL MDI INHALATION 8 GM INH INH SCH ×5 (07:30→23:31)
[2020-02-20 08:50] LABS: EOSINOPHILS % (AUTO) 0.1 % (0.0-4.0); HEMATOCRIT 37.8 % (36-54); HEMOGLOBIN 12.4 g/dL (14.0-18.0); LYMPHOCYTES # (AUTO) 0.4 K/uL (1.0-5.5); LYMPHOCYTES % (AUTO) 1.8 % (20.5-51.5); MEAN CORPUSCULAR HEMOGLOBIN 31 pg (27-31); MEAN CORPUSCULAR HGB CONC 33 % (32-36); MEAN CORPUSCULAR VOLUME 93 fL (79.0-98.0); MONOCYTES # (AUTO) 1.6 K/uL (0.0-1.0); MONOCYTES % (AUTO) 7.3 % (1.7-9.3); NEUTROPHILS # (AUTO) 19.8 K/uL (1.8-7.7); NEUTROPHILS % (AUTO) 90.8 % (40.0-70.0); PLATELET COUNT (AUTO) 93 K/uL (130-430); RED BLOOD CELL COUNT(AUTO) 4.07 MIL/uL (4.2-6.2); RED CELL DISTRIBUTION WIDTH 14.8 % (9.0-15.0); WHITE BLOOD COUNT (AUTO) 21.8 K/uL (4.8-10.8)
[2020-02-20] MEDS: CHOLECALCIFEROL (VITAMIN D3) 5,000 UNIT TABLET PO SCH (09:00)
[2020-02-20] MEDS: ASCORBIC ACID 500 MG TABLET PO SCH ×2 (09:00→20:31)
[2020-02-20 09:29] LABS: ALBUMIN 1.8 g/dL (3.4-4.8); CALCIUM 7.4 mg/dL (8.4-11.0); CREATININE 2.98 mg/dL (0.55-1.30); POTASSIUM 5.2 mmol/L (3.5-5.1); TOTAL BILIRUBIN 1.1 mg/dL (0.0-1.0)
[2020-02-20 10:31] LABS: C-REACTIVE PROTEIN QUANT 8.6 mg/dL (0-0.5)
[2020-02-20 11:03] LABS: ERYTHROCYTE SEDIMENTATION RATE 7 MM/HR (0-15)
[2020-02-20] MEDS: cefTRIAXone 1 GM IVPB PREMIX 50 ML IV SCH (11:30)
[2020-02-20] MEDS: SODIUM BICARBONATE 8.4% VIAL 50 MEQ in 0.45% NACL 1,000 ML IV SCH (12:56)
[2020-02-20] MEDS: DEXAMETHASONE SOD PHOSPHATE 10 MG/ML VIAL IVP SCH (13:40)
[2020-02-20] MEDS: HEPARIN SODIUM,PORCINE 5,000 UNITS/ML VIAL SUBCUT SCH ×2 (14:00→21:24)
[2020-02-20] MEDS ORDERED: SODIUM POLYSTYRENE SULFONATE 15 GM/60 ML UDBTL RC ONE (18:30)
[2020-02-20] MEDS ORDERED: HEPARIN SODIUM,PORCINE 5,000 UNITS/ML VIAL ONE (21:23)
[2020-02-21] VITALS (18 sets, daily range): BP systolic 101–143
[2020-02-21] MEDS: SODIUM BICARBONATE 8.4% VIAL 50 MEQ in 0.45% NACL 1,000 ML IV SCH ×2 (02:49→16:57)
[2020-02-21] MEDS: ALBUTEROL MDI INHALATION 8 GM INH INH SCH ×6 (03:31→23:00)
[2020-02-21] MEDS ORDERED: HEPARIN SODIUM,PORCINE 5,000 UNITS/ML VIAL ONE ×2 (05:49→21:19)
[2020-02-21] MEDS: INSULIN REGULAR, HUMAN 100 UNITS/ML, 10 ML VIAL (humuLIN R) SUBCUT PRN ×4 (05:50→22:03)
[2020-02-21] MEDS: HEPARIN SODIUM,PORCINE 5,000 UNITS/ML VIAL SUBCUT SCH ×3 (05:52→22:01)
[2020-02-21] MEDS: PROPOFOL DRIP 100 ML IV PRN ×2 (06:06→22:02)
[2020-02-21 06:49] LABS: BASOPHILS # (AUTO) 0.1 K/uL (0.0-0.2); BASOPHILS % (AUTO) 0.6 % (0.0-2.0); HEMATOCRIT 36.6 % (36-54); HEMOGLOBIN 12.2 g/dL (14.0-18.0); LYMPHOCYTES # (AUTO) 0.3 K/uL (1.0-5.5); LYMPHOCYTES % (AUTO) 1.8 % (20.5-51.5); MEAN CORPUSCULAR HEMOGLOBIN 31 pg (27-31); MEAN CORPUSCULAR HGB CONC 33 % (32-36); MEAN CORPUSCULAR VOLUME 93 fL (79.0-98.0); MONOCYTES # (AUTO) 1.2 K/uL (0.0-1.0); MONOCYTES % (AUTO) 7.5 % (1.7-9.3); NEUTROPHILS # (AUTO) 13.9 K/uL (1.8-7.7); NEUTROPHILS % (AUTO) 90.1 % (40.0-70.0); PLATELET COUNT (AUTO) 76 K/uL (130-430); RED BLOOD CELL COUNT(AUTO) 3.95 MIL/uL (4.2-6.2); RED CELL DISTRIBUTION WIDTH 14.6 % (9.0-15.0); WHITE BLOOD COUNT (AUTO) 15.5 K/uL (4.8-10.8)
[2020-02-21 08:14] LABS: CALCIUM 8.2 mg/dL (8.4-11.0); CREATININE 2.24 mg/dL (0.55-1.30); PHOSPHORUS 5.2 mg/dL (2.7-4.5); POTASSIUM 4.9 mmol/L (3.5-5.1)
[2020-02-21] MEDS: CHOLECALCIFEROL (VITAMIN D3) 5,000 UNIT TABLET PO SCH (09:45)
[2020-02-21] MEDS: cefTRIAXone 1 GM IVPB PREMIX 50 ML IV SCH (09:45)
[2020-02-21] MEDS: ASCORBIC ACID 500 MG TABLET PO SCH ×2 (09:45→21:16)
[2020-02-21 10:08] LABS: ERYTHROCYTE SEDIMENTATION RATE 16 MM/HR (0-15)
[2020-02-21] MEDS: DEXMEDETOMIDINE HCL 200 MCG in NS 48 ML IV PRN ×2 (10:30→14:24)
[2020-02-21 10:40] LABS: C-REACTIVE PROTEIN QUANT 8.1 mg/dL (0-0.5)
[2020-02-21] MEDS: NOREPINEPHRINE BITARTRATE 8 MG in NS 242 ML IV PRN ×2 (10:50→12:01)
[2020-02-21] MEDS ORDERED: INSULIN REGULAR, HUMAN 10 UNITS/0.1 ML INJ ONE ×2 (11:59→16:51)
[2020-02-21] MEDS ORDERED: DEXAMETHASONE SOD PHOSPHATE 10 MG/ML VIAL ONE (12:32)
[2020-02-21] MEDS: DEXAMETHASONE SOD PHOSPHATE 10 MG/ML VIAL IVP SCH (12:36)
[2020-02-22] VITALS (28 sets, daily range): BP systolic 94–149
[2020-02-22] MEDS: PROPOFOL DRIP 100 ML IV PRN ×2 (02:38→18:36)
[2020-02-22] MEDS: ALBUTEROL MDI INHALATION 8 GM INH INH SCH ×5 (03:00→23:20)
[2020-02-22] MEDS: DEXMEDETOMIDINE HCL 200 MCG in NS 48 ML IV PRN ×3 (03:14→23:35)
[2020-02-22 05:13] LABS: C-REACTIVE PROTEIN QUANT 7.7 mg/dL (0-0.5)
[2020-02-22] MEDS ORDERED: HEPARIN SODIUM,PORCINE 5,000 UNITS/ML VIAL ONE (05:59)
[2020-02-22 06:26] LABS: BASOPHILS % (AUTO) 0.2 % (0.0-2.0); EOSINOPHILS % (AUTO) 0.1 % (0.0-4.0); HEMATOCRIT 34.9 % (36-54); HEMOGLOBIN 11.8 g/dL (14.0-18.0); LYMPHOCYTES # (AUTO) 0.2 K/uL (1.0-5.5); LYMPHOCYTES % (AUTO) 1.5 % (20.5-51.5); MEAN CORPUSCULAR HEMOGLOBIN 31 pg (27-31); MEAN CORPUSCULAR HGB CONC 34 % (32-36); MEAN CORPUSCULAR VOLUME 93 fL (79.0-98.0); MONOCYTES # (AUTO) 0.9 K/uL (0.0-1.0); MONOCYTES % (AUTO) 7.8 % (1.7-9.3); NEUTROPHILS # (AUTO) 10.5 K/uL (1.8-7.7); NEUTROPHILS % (AUTO) 90.4 % (40.0-70.0); PLATELET COUNT (AUTO) 75 K/uL (130-430); RED BLOOD CELL COUNT(AUTO) 3.76 MIL/uL (4.2-6.2); RED CELL DISTRIBUTION WIDTH 14.3 % (9.0-15.0); WHITE BLOOD COUNT (AUTO) 11.7 K/uL (4.8-10.8)
[2020-02-22] MEDS: HEPARIN SODIUM,PORCINE 5,000 UNITS/ML VIAL SUBCUT SCH (06:51)
[2020-02-22] MEDS: INSULIN REGULAR, HUMAN 100 UNITS/ML, 10 ML VIAL (humuLIN R) SUBCUT PRN ×4 (06:52→23:34)
[2020-02-22 08:03] LABS: CALCIUM 7.3 mg/dL (8.4-11.0); CREATININE 2.51 mg/dL (0.55-1.30); POTASSIUM 4.5 mmol/L (3.5-5.1)
[2020-02-22] MEDS: SODIUM BICARBONATE 8.4% VIAL 50 MEQ in 0.45% NACL 1,000 ML IV SCH ×2 (09:50→21:13)
[2020-02-22] MEDS: CHOLECALCIFEROL (VITAMIN D3) 5,000 UNIT TABLET PO SCH (10:07)
[2020-02-22] MEDS: cefTRIAXone 1 GM IVPB PREMIX 50 ML IV SCH (10:07)
[2020-02-22] MEDS: ASCORBIC ACID 500 MG TABLET PO SCH ×2 (10:08→21:13)
[2020-02-22 12:08] LABS: ERYTHROCYTE SEDIMENTATION RATE 13 MM/HR (0-15)
[2020-02-22] MEDS: DEXAMETHASONE SOD PHOSPHATE 10 MG/ML VIAL IVP SCH (14:25)
[2020-02-23] VITALS (29 sets, daily range): BP systolic 112–156
[2020-02-23] MEDS: PROPOFOL DRIP 100 ML IV PRN ×2 (01:55→05:37)
[2020-02-23] MEDS: hydrALAZINE HCL 20 MG/ML VIAL IVP PRN (01:58)
[2020-02-23] MEDS: ALBUTEROL MDI INHALATION 8 GM INH INH SCH ×5 (03:54→18:50)
[2020-02-23 06:29] LABS: BASOPHILS % (AUTO) 0.3 % (0.0-2.0); EOSINOPHILS % (AUTO) 0.1 % (0.0-4.0); HEMATOCRIT 34.9 % (36-54); HEMOGLOBIN 11.6 g/dL (14.0-18.0); LYMPHOCYTES # (AUTO) 0.3 K/uL (1.0-5.5); LYMPHOCYTES % (AUTO) 1.9 % (20.5-51.5); MEAN CORPUSCULAR HEMOGLOBIN 31 pg (27-31); MEAN CORPUSCULAR HGB CONC 33 % (32-36); MEAN CORPUSCULAR VOLUME 95 fL (79.0-98.0); MONOCYTES # (AUTO) 1.2 K/uL (0.0-1.0); MONOCYTES % (AUTO) 7.5 % (1.7-9.3); NEUTROPHILS # (AUTO) 13.9 K/uL (1.8-7.7); NEUTROPHILS % (AUTO) 90.2 % (40.0-70.0); PLATELET COUNT (AUTO) 91 K/uL (130-430); RED BLOOD CELL COUNT(AUTO) 3.68 MIL/uL (4.2-6.2); RED CELL DISTRIBUTION WIDTH 14.7 % (9.0-15.0); WHITE BLOOD COUNT (AUTO) 15.4 K/uL (4.8-10.8)
[2020-02-23] MEDS: INSULIN REGULAR, HUMAN 100 UNITS/ML, 10 ML VIAL (humuLIN R) SUBCUT PRN ×4 (07:09→22:14)
[2020-02-23 07:21] LABS: ALBUMIN 1.9 g/dL (3.4-4.8); CALCIUM 8.1 mg/dL (8.4-11.0); PHOSPHORUS 3.9 mg/dL (2.7-4.5); POTASSIUM 4.9 mmol/L (3.5-5.1)
[2020-02-23] MEDS: CHOLECALCIFEROL (VITAMIN D3) 5,000 UNIT TABLET PO SCH (08:32)
[2020-02-23] MEDS: ASCORBIC ACID 500 MG TABLET PO SCH ×2 (08:32→21:48)
[2020-02-23] MEDS: cefTRIAXone 1 GM IVPB PREMIX 50 ML IV SCH (08:32)
[2020-02-23 09:32] LABS: CREATININE 1.72 mg/dL (0.55-1.30)
[2020-02-23 09:34] LABS: ERYTHROCYTE SEDIMENTATION RATE 22 MM/HR (0-15)
[2020-02-23] MEDS: SODIUM BICARBONATE 8.4% VIAL 50 MEQ in 0.45% NACL 1,000 ML IV SCH (10:48)
[2020-02-23 10:57] LABS: C-REACTIVE PROTEIN QUANT 18.3 mg/dL (0-0.5)
[2020-02-23] MEDS: DEXAMETHASONE SOD PHOSPHATE 10 MG/ML VIAL IVP SCH (12:30)
[2020-02-23] MEDS ORDERED: DEXMEDETOMIDINE HCL 400 MCG in NS 96 ML IV PRN (15:00)
[2020-02-24] VITALS (29 sets, daily range): BP systolic 120–166
[2020-02-24] MEDS: ALBUTEROL MDI INHALATION 8 GM INH INH SCH ×6 (00:28→23:17)
[2020-02-24] MEDS: SODIUM BICARBONATE 8.4% VIAL 50 MEQ in 0.45% NACL 1,000 ML IV SCH ×2 (01:00→10:00)
[2020-02-24] MEDS: MORPHINE I.V. DRIP 100 ML IV PRN (01:09)
[2020-02-24] MEDS: PROPOFOL DRIP 100 ML IV PRN ×3 (05:49→22:25)
[2020-02-24] MEDS: INSULIN REGULAR, HUMAN 100 UNITS/ML, 10 ML VIAL (humuLIN R) SUBCUT PRN ×2 (06:11→18:03)
[2020-02-24 06:46] LABS: BASOPHILS % (AUTO) 0.2 % (0.0-2.0); HEMATOCRIT 34.5 % (36-54); HEMOGLOBIN 11.5 g/dL (14.0-18.0); LYMPHOCYTES # (AUTO) 0.2 K/uL (1.0-5.5); LYMPHOCYTES % (AUTO) 1.7 % (20.5-51.5); MEAN CORPUSCULAR HEMOGLOBIN 31 pg (27-31); MEAN CORPUSCULAR HGB CONC 33 % (32-36); MEAN CORPUSCULAR VOLUME 94 fL (79.0-98.0); MONOCYTES # (AUTO) 0.9 K/uL (0.0-1.0); MONOCYTES % (AUTO) 6.7 % (1.7-9.3); NEUTROPHILS # (AUTO) 12.6 K/uL (1.8-7.7); NEUTROPHILS % (AUTO) 91.4 % (40.0-70.0); PLATELET COUNT (AUTO) 80 K/uL (130-430); RED BLOOD CELL COUNT(AUTO) 3.69 MIL/uL (4.2-6.2); WHITE BLOOD COUNT (AUTO) 13.8 K/uL (4.8-10.8)
[2020-02-24 08:12] LABS: CALCIUM 7.2 mg/dL (8.4-11.0); CREATININE 1.36 mg/dL (0.55-1.30); PHOSPHORUS 3.6 mg/dL (2.7-4.5); POTASSIUM 4.7 mmol/L (3.5-5.1)
[2020-02-24] MEDS ORDERED: INSULIN GLARGINE 100 UNITS/ML 10 ML VIAL SUBCUT SCH (09:45)
[2020-02-24] MEDS: BALSAM PERU/CASTOR OIL 60 GM OINT...G. TP SCH (10:21)
[2020-02-24] MEDS: ASCORBIC ACID 500 MG TABLET PO SCH ×2 (10:21→20:58)
[2020-02-24] MEDS: CHOLECALCIFEROL (VITAMIN D3) 5,000 UNIT TABLET PO SCH (10:21)
[2020-02-24 10:34] LABS: ERYTHROCYTE SEDIMENTATION RATE 38 MM/HR (0-15)
[2020-02-24] MEDS ORDERED: INSULIN GLARGINE 100 UNITS/ML 10 ML VIAL SUBCUT ONE (11:00)
[2020-02-24] MEDS: DEXAMETHASONE SOD PHOSPHATE 10 MG/ML VIAL IVP SCH (12:00)
[2020-02-24 12:46] LABS: C-REACTIVE PROTEIN QUANT 19.1 mg/dL (0-0.5)
[2020-02-25] VITALS (28 sets, daily range): BP systolic 84–139
[2020-02-25] MEDS: SODIUM BICARBONATE 8.4% VIAL 50 MEQ in 0.45% NACL 1,000 ML IV SCH ×2 (00:19→19:00)
[2020-02-25] MEDS: MORPHINE I.V. DRIP 100 ML IV PRN (00:20)
[2020-02-25] MEDS: INSULIN REGULAR, HUMAN 100 UNITS/ML, 10 ML VIAL (humuLIN R) SUBCUT PRN ×4 (00:21→17:22)
[2020-02-25] MEDS: ALBUTEROL MDI INHALATION 8 GM INH INH SCH ×6 (03:00→23:38)
[2020-02-25 05:50] LABS: ALBUMIN 1.3 g/dL (3.4-4.8); CALCIUM 7.9 mg/dL (8.4-11.0); CREATININE 1.51 mg/dL (0.55-1.30); PHOSPHORUS 3.2 mg/dL (2.7-4.5); TOTAL BILIRUBIN 0.7 mg/dL (0.0-1.0)
[2020-02-25 06:49] LABS: BASOPHILS % (AUTO) 0.2 % (0.0-2.0); EOSINOPHILS % (AUTO) 0.3 % (0.0-4.0); HEMATOCRIT 33.9 % (36-54); LYMPHOCYTES # (AUTO) 0.4 K/uL (1.0-5.5); LYMPHOCYTES % (AUTO) 2.4 % (20.5-51.5); MEAN CORPUSCULAR HEMOGLOBIN 31 pg (27-31); MEAN CORPUSCULAR HGB CONC 33 % (32-36); MEAN CORPUSCULAR VOLUME 96 fL (79.0-98.0); MONOCYTES % (AUTO) 5.6 % (1.7-9.3); NEUTROPHILS # (AUTO) 16.4 K/uL (1.8-7.7); NEUTROPHILS % (AUTO) 91.5 % (40.0-70.0); PLATELET COUNT (AUTO) 97 K/uL (130-430); RED BLOOD CELL COUNT(AUTO) 3.55 MIL/uL (4.2-6.2); RED CELL DISTRIBUTION WIDTH 15.2 % (9.0-15.0)
[2020-02-25 06:59] LABS: POTASSIUM 4.9 mmol/L (3.5-5.1)
[2020-02-25 07:11] LABS: C-REACTIVE PROTEIN QUANT 30.3 mg/dL (0-0.5)
[2020-02-25 07:26] LABS: WHITE BLOOD COUNT (AUTO) 17.9 K/uL (4.8-10.8)
[2020-02-25 08:29] LABS: ERYTHROCYTE SEDIMENTATION RATE 63 MM/HR (0-15)
[2020-02-25] MEDS: ASCORBIC ACID 500 MG TABLET PO SCH ×2 (09:00→21:39)
[2020-02-25] MEDS ORDERED: INSULIN GLARGINE 100 UNITS/ML 10 ML VIAL SUBCUT SCH (09:00)
[2020-02-25] MEDS: BALSAM PERU/CASTOR OIL 60 GM OINT...G. TP SCH (09:00)
[2020-02-25] MEDS: INSULIN GLARGINE 100 UNITS/ML 10 ML VIAL SUBCUT SCH (09:18)
[2020-02-25] MEDS: CHOLECALCIFEROL (VITAMIN D3) 5,000 UNIT TABLET PO SCH (09:27)
[2020-02-25] MEDS: PROPOFOL DRIP 100 ML IV PRN ×2 (09:30→17:17)
[2020-02-25] MEDS: DEXAMETHASONE SOD PHOSPHATE 4 MG/ML VIAL IVP SCH (12:24)
[2020-02-26] VITALS (28 sets, daily range): BP systolic 97–139
[2020-02-26] MEDS: INSULIN REGULAR, HUMAN 100 UNITS/ML, 10 ML VIAL (humuLIN R) SUBCUT PRN ×4 (00:19→17:29)
[2020-02-26] MEDS: PROPOFOL DRIP 100 ML IV PRN ×3 (01:35→23:03)
[2020-02-26] MEDS: ALBUTEROL MDI INHALATION 8 GM INH INH SCH ×5 (03:30→23:29)
[2020-02-26 06:37] LABS: HEMATOCRIT 32.3 % (36-54); HEMOGLOBIN 10.7 g/dL (14.0-18.0); MEAN CORPUSCULAR HEMOGLOBIN 31 pg (27-31); MEAN CORPUSCULAR HGB CONC 33 % (32-36); MEAN CORPUSCULAR VOLUME 94 fL (79.0-98.0); PLATELET COUNT (AUTO) 94 K/uL (130-430); RED BLOOD CELL COUNT(AUTO) 3.42 MIL/uL (4.2-6.2); RED CELL DISTRIBUTION WIDTH 15.3 % (9.0-15.0); WHITE BLOOD COUNT (AUTO) 20.6 K/uL (4.8-10.8)
[2020-02-26 06:54] LABS: CALCIUM 7.5 mg/dL (8.4-11.0); CHLORIDE 108 mmol/L (98-107); CREATININE 1.47 mg/dL (0.55-1.30); GLUCOSE 238 mg/dL (70-99); PHOSPHORUS 3.7 mg/dL (2.7-4.5); SODIUM SERUM 142 mmol/L (136-145); UREA NITROGEN, BLOOD 70 mg/dL (8-21)
[2020-02-26 07:25] LABS: ANION GAP < 3 (5-15); GFR AFRICAN AMERICAN 62 mL/min (>90)
[2020-02-26] MEDS: BALSAM PERU/CASTOR OIL 60 GM OINT...G. TP SCH (09:00)
[2020-02-26] MEDS: ASCORBIC ACID 500 MG TABLET PO SCH ×2 (09:15→20:05)
[2020-02-26] MEDS: CHOLECALCIFEROL (VITAMIN D3) 5,000 UNIT TABLET PO SCH (09:15)
[2020-02-26] MEDS: INSULIN GLARGINE 100 UNITS/ML 10 ML VIAL SUBCUT SCH (09:34)
[2020-02-26] MEDS: SODIUM BICARBONATE 8.4% VIAL 50 MEQ in 0.45% NACL 1,000 ML IV SCH (09:34)
[2020-02-26] MEDS: AMIODARONE HCL 200 MG TABLET PO SCH (09:36)
[2020-02-26] MEDS: DEXAMETHASONE SOD PHOSPHATE 4 MG/ML VIAL IVP SCH (11:26)
[2020-02-26 12:02] LABS: BAND % (MANUAL) 27 % (0-6); BASOPHILS % (MANUAL) 0 % (0-2); EOSINOPHILS % (MANUAL) 0 % (0-7); LYMPHOCYTES % (MANUAL) 1 % (20-46); MONOCYTES % (MANUAL) 5 % (0-11)
[2020-02-26] MEDS ORDERED: ALBUTEROL MDI INHALATION 8 GM INH INH PRN (13:15)
[2020-02-26] MEDS: NACL 0.9% 1,000 ML IV SCH (14:30)
[2020-02-26] MEDS: PIPERACILLIN/TAZO 3.375/DEX-IS 50 ML IV SCH ×2 (17:41→23:38)
[2020-02-26 17:59] LABS: BILIRUBIN,URINE NEGATIVE (NEGATIVE); BLOOD, URINE 1+ (NEGATIVE); CLARITY/URINE TURBID (CLEAR); COLOR,URINE YELLOW (YELLOW); GLUCOSE,URINE NEGATIVE (NEGATIVE); KETONES,URINE NEGATIVE (NEGATIVE); LEUKOCYTE ESTERASE ,URINE 2+ (NEGATIVE); NITRITE, URINE NEGATIVE (NEGATIVE); PH,URINE 5.5 (5.0-8.0); PROTEIN URINE TRACE (NEGATIVE)
[2020-02-26 18:24] LABS: BACTERIA,URINE FEW /HPF (None Seen); MUCUS,URINE None Seen /LPF (None Seen); RBC,URINE 20-50 /HPF (0-3); YEAST,URINE Many /HPF (None Seen)
[2020-02-27] VITALS (28 sets, daily range): BP systolic 96–142
[2020-02-27] MEDS: INSULIN REGULAR, HUMAN 100 UNITS/ML, 10 ML VIAL (humuLIN R) SUBCUT PRN ×4 (00:42→18:42)
[2020-02-27] MEDS: NACL 0.9% 1,000 ML IV SCH ×2 (03:46→16:55)
[2020-02-27] MEDS: MORPHINE I.V. DRIP 100 ML IV PRN (03:47)
[2020-02-27] MEDS: ALBUTEROL MDI INHALATION 8 GM INH INH SCH ×5 (04:15→20:04)
[2020-02-27] MEDS: PIPERACILLIN/TAZO 3.375/DEX-IS 50 ML IV SCH ×3 (06:15→18:09)
[2020-02-27 06:44] LABS: BASOPHILS % (AUTO) 0.2 % (0.0-2.0); EOSINOPHILS % (AUTO) 0.1 % (0.0-4.0); HEMATOCRIT 29.9 % (36-54); HEMOGLOBIN 9.8 g/dL (14.0-18.0); LYMPHOCYTES # (AUTO) 0.5 K/uL (1.0-5.5); LYMPHOCYTES % (AUTO) 2.3 % (20.5-51.5); MEAN CORPUSCULAR HEMOGLOBIN 31 pg (27-31); MEAN CORPUSCULAR HGB CONC 33 % (32-36); MEAN CORPUSCULAR VOLUME 95 fL (79.0-98.0); MONOCYTES # (AUTO) 1.4 K/uL (0.0-1.0); MONOCYTES % (AUTO) 6.4 % (1.7-9.3); NEUTROPHILS # (AUTO) 19.2 K/uL (1.8-7.7); PLATELET COUNT (AUTO) 106 K/uL (130-430); RED BLOOD CELL COUNT(AUTO) 3.16 MIL/uL (4.2-6.2); RED CELL DISTRIBUTION WIDTH 15.5 % (9.0-15.0); WHITE BLOOD COUNT (AUTO) 21.1 K/uL (4.8-10.8)
[2020-02-27 06:56] LABS: ALBUMIN 0.9 g/dL (3.4-4.8); CALCIUM 7.2 mg/dL (8.4-11.0); CREATININE 1.63 mg/dL (0.55-1.30); PHOSPHORUS 3.6 mg/dL (2.7-4.5); POTASSIUM 5.2 mmol/L (3.5-5.1); TOTAL BILIRUBIN 0.9 mg/dL (0.0-1.0)
[2020-02-27] MEDS: BALSAM PERU/CASTOR OIL 60 GM OINT...G. TP SCH (07:55)
[2020-02-27] MEDS: CHOLECALCIFEROL (VITAMIN D3) 5,000 UNIT TABLET PO SCH (07:55)
[2020-02-27] MEDS: ASCORBIC ACID 500 MG TABLET PO SCH ×2 (07:55→22:06)
[2020-02-27] MEDS: AMIODARONE HCL 200 MG TABLET PO SCH (08:02)
[2020-02-27 08:03] LABS: C-REACTIVE PROTEIN QUANT 36.7 mg/dL (0-0.5)
[2020-02-27] MEDS: INSULIN GLARGINE 100 UNITS/ML 10 ML VIAL SUBCUT SCH ×2 (08:03→08:44)
[2020-02-27 08:09] LABS: ERYTHROCYTE SEDIMENTATION RATE 97 MM/HR (0-15)
[2020-02-27] MEDS ORDERED: SODIUM POLYSTYRENE SULFONATE 15 GM/60 ML UDBTL NG ONE (08:15)
[2020-02-27] MEDS: PROPOFOL DRIP 100 ML IV PRN (11:04)
[2020-02-27] MEDS: DEXAMETHASONE SOD PHOSPHATE 4 MG/ML VIAL IVP SCH (12:00)
[2020-02-28] VITALS (27 sets, daily range): BP systolic 107–144
[2020-02-28] MEDS: PIPERACILLIN/TAZO 3.375/DEX-IS 50 ML IV SCH ×5 (00:29→23:55)
[2020-02-28] MEDS: NACL 0.9% 1,000 ML IV SCH (00:29)
[2020-02-28] MEDS: INSULIN REGULAR, HUMAN 100 UNITS/ML, 10 ML VIAL (humuLIN R) SUBCUT PRN ×4 (00:57→18:02)
[2020-02-28 04:52] LABS: BASOPHILS # (AUTO) 0.2 K/uL (0.0-0.2); BASOPHILS % (AUTO) 0.9 % (0.0-2.0); EOSINOPHILS % (AUTO) 0.1 % (0.0-4.0); HEMATOCRIT 30.3 % (36-54); HEMOGLOBIN 9.7 g/dL (14.0-18.0); LYMPHOCYTES # (AUTO) 0.5 K/uL (1.0-5.5); LYMPHOCYTES % (AUTO) 2.4 % (20.5-51.5); MEAN CORPUSCULAR HEMOGLOBIN 31 pg (27-31); MEAN CORPUSCULAR HGB CONC 32 % (32-36); MEAN CORPUSCULAR VOLUME 95 fL (79.0-98.0); MONOCYTES # (AUTO) 0.9 K/uL (0.0-1.0); MONOCYTES % (AUTO) 4.9 % (1.7-9.3); NEUTROPHILS # (AUTO) 17.3 K/uL (1.8-7.7); NEUTROPHILS % (AUTO) 91.7 % (40.0-70.0); PLATELET COUNT (AUTO) 102 K/uL (130-430); RED BLOOD CELL COUNT(AUTO) 3.17 MIL/uL (4.2-6.2); RED CELL DISTRIBUTION WIDTH 16.1 % (9.0-15.0); WHITE BLOOD COUNT (AUTO) 18.9 K/uL (4.8-10.8)
[2020-02-28] MEDS: ALBUTEROL MDI INHALATION 8 GM INH INH SCH ×5 (04:57→19:00)
[2020-02-28 05:11] LABS: CALCIUM 7.4 mg/dL (8.4-11.0); CREATININE 1.67 mg/dL (0.55-1.30); PHOSPHORUS 4.1 mg/dL (2.7-4.5); POTASSIUM 4.8 mmol/L (3.5-5.1)
[2020-02-28 05:18] LABS: C-REACTIVE PROTEIN QUANT 32.7 mg/dL (0-0.5)
[2020-02-28 05:47] LABS: ERYTHROCYTE SEDIMENTATION RATE 106 MM/HR (0-15)
[2020-02-28] MEDS: ASCORBIC ACID 500 MG TABLET PO SCH ×2 (08:48→20:19)
[2020-02-28] MEDS: AMIODARONE HCL 200 MG TABLET PO SCH (08:48)
[2020-02-28] MEDS: CHOLECALCIFEROL (VITAMIN D3) 5,000 UNIT TABLET PO SCH (08:48)
[2020-02-28] MEDS: INSULIN GLARGINE 100 UNITS/ML 10 ML VIAL SUBCUT SCH (08:49)
[2020-02-28] MEDS: BALSAM PERU/CASTOR OIL 60 GM OINT...G. TP SCH (08:51)
[2020-02-28] MEDS: DEXAMETHASONE SOD PHOSPHATE 4 MG/ML VIAL IVP SCH (11:59)
[2020-02-28] MEDS: FUROSEMIDE 20 MG TABLET PO SCH (20:18)
[2020-02-29] VITALS (32 sets, daily range): BP systolic 110–133
[2020-02-29] MEDS: INSULIN REGULAR, HUMAN 100 UNITS/ML, 10 ML VIAL (humuLIN R) SUBCUT PRN ×4 (00:18→23:49)
[2020-02-29] MEDS: ALBUTEROL MDI INHALATION 8 GM INH INH SCH ×7 (00:26→23:47)
[2020-02-29] MEDS: PIPERACILLIN/TAZO 3.375/DEX-IS 50 ML IV SCH ×4 (05:21→23:46)
[2020-02-29 07:30] LABS: BASOPHILS # (AUTO) 0.1 K/uL (0.0-0.2); BASOPHILS % (AUTO) 0.4 % (0.0-2.0); EOSINOPHILS % (AUTO) 0.2 % (0.0-4.0); HEMATOCRIT 31.2 % (36-54); HEMOGLOBIN 10.1 g/dL (14.0-18.0); LYMPHOCYTES # (AUTO) 0.5 K/uL (1.0-5.5); LYMPHOCYTES % (AUTO) 2.8 % (20.5-51.5); MEAN CORPUSCULAR HEMOGLOBIN 31 pg (27-31); MEAN CORPUSCULAR HGB CONC 32 % (32-36); MEAN CORPUSCULAR VOLUME 96 fL (79.0-98.0); MONOCYTES # (AUTO) 0.9 K/uL (0.0-1.0); MONOCYTES % (AUTO) 5.4 % (1.7-9.3); NEUTROPHILS # (AUTO) 15.8 K/uL (1.8-7.7); PLATELET COUNT (AUTO) 97 K/uL (130-430); RED BLOOD CELL COUNT(AUTO) 3.24 MIL/uL (4.2-6.2); RED CELL DISTRIBUTION WIDTH 16.2 % (9.0-15.0); WHITE BLOOD COUNT (AUTO) 17.3 K/uL (4.8-10.8)
[2020-02-29 07:40] LABS: NEUTROPHILS % (AUTO) 91.2 % (40.0-70.0)
[2020-02-29 08:00] LABS: CALCIUM 8.5 mg/dL (8.4-11.0); CREATININE 1.65 mg/dL (0.55-1.30); PHOSPHORUS 3.9 mg/dL (2.7-4.5); POTASSIUM 5.1 mmol/L (3.5-5.1)
[2020-02-29] MEDS ORDERED: AMIODARONE HCL 200 MG TABLET PO SCH (09:00)
[2020-02-29] MEDS: FUROSEMIDE 20 MG TABLET PO SCH ×2 (09:45→21:07)
[2020-02-29] MEDS: INSULIN GLARGINE 100 UNITS/ML 10 ML VIAL SUBCUT SCH (09:45)
[2020-02-29] MEDS: CHOLECALCIFEROL (VITAMIN D3) 5,000 UNIT TABLET PO SCH (09:45)
[2020-02-29] MEDS: ASCORBIC ACID 500 MG TABLET PO SCH ×2 (09:45→21:07)
[2020-02-29] MEDS: BALSAM PERU/CASTOR OIL 60 GM OINT...G. TP SCH (09:45)
[2020-02-29] MEDS: MORPHINE I.V. DRIP 100 ML IV PRN (09:49)
[2020-02-29] MEDS ORDERED: PROPOFOL DRIP 100 ML IV PRN (10:30)
[2020-02-29 11:33] LABS: ERYTHROCYTE SEDIMENTATION RATE 102 MM/HR (0-15)
[2020-02-29] MEDS: DEXAMETHASONE SOD PHOSPHATE 4 MG/ML VIAL IVP SCH (11:50)
[2020-02-29] MEDS ORDERED: VANCOMYCIN HCL 1,500 MG in NS 250 ML IV SCH (18:00)
[2020-03-01] VITALS: BP_SYST 118
[2020-03-01 01:00] VITALS: BP_SYST 97
[2020-03-01 02:00] VITALS: BP_SYST 105
[2020-03-01 03:00] VITALS: BP_SYST 104
[2020-03-01] MEDS ORDERED: SODIUM BICARBONATE 8.4% JECT 50 MEQ/50 ML SYRINGE ONE (04:28)
[2020-03-01] MEDS ORDERED: EPINEPHrine 1 MG/ML AMP ONE (05:07)
[2020-03-01] MEDS ORDERED: EPINEPHrine JECT 0.1 MG/ML SYR ONE (05:08)
[2020-03-01 05:16] LABS: HEMATOCRIT 34.3 % (36-54); HEMOGLOBIN 10.3 g/dL (14.0-18.0); MEAN CORPUSCULAR HEMOGLOBIN 31 pg (27-31); MEAN CORPUSCULAR HGB CONC 30 % (32-36); MEAN CORPUSCULAR VOLUME 102 fL (79.0-98.0); PLATELET COUNT (AUTO) 122 K/uL (130-430); RED BLOOD CELL COUNT(AUTO) 3.37 MIL/uL (4.2-6.2); RED CELL DISTRIBUTION WIDTH 16.9 % (9.0-15.0); WHITE BLOOD COUNT (AUTO) 25.4 K/uL (4.8-10.8)
[2020-03-01 05:26] LABS: ALBUMIN 0.9 g/dL (3.4-4.8); CALCIUM 9.7 mg/dL (8.4-11.0); CREATININE 2.33 mg/dL (0.55-1.30); PHOSPHORUS 6.7 mg/dL (2.7-4.5); POTASSIUM 5.2 mmol/L (3.5-5.1); TOTAL BILIRUBIN 0.9 mg/dL (0.0-1.0)
[2020-03-01 05:39] LABS: BAND % (MANUAL) 7 % (0-6); BASOPHILS % (MANUAL) 0 % (0-2); EOSINOPHILS % (MANUAL) 0 % (0-7); LYMPHOCYTES % (MANUAL) 8 % (20-46); MONOCYTES % (MANUAL) 5 % (0-11)
[2020-03-01] MEDS ORDERED: INSULIN GLARGINE 100 UNITS/ML 10 ML VIAL SUBCUT SCH (09:00)
[2020-03-01 12:40] LABS: C-REACTIVE PROTEIN QUANT 20.8 mg/dL (0-0.5)
[2020-03-01] MEDS ORDERED: VANCOMYCIN HCL 1 GM/NS PREMIX 250 ML IV SCH (18:00)
== END 2020-03-01 05:50 | disposition expired | DRG 870 ==
LOC: SED 02:31 → SIC 06:25
PROVIDERS: ADMIT Preventive Medicine Preventive Medicine/Occupational Environmental Medicine; ATTEND Preventive Medicine Preventive Medicine/Occupational Environmental Medicine
PROC: 5A09457 Assistance with Respiratory Ventilation, 24-96 Consecutive Hours, Continuous Positive Airway Pressure (ICD-10-PCS; 2020-02-17)
PROC: 5A1955Z Respiratory Ventilation, Greater than 96 Consecutive Hours (ICD-10-PCS; principal; 2020-02-18)
PROC: 0BH17EZ Insertion of Endotracheal Airway into Trachea, Via Natural or Artificial Opening (ICD-10-PCS; 2020-02-18)
PROC: 02HV33Z Insertion of Infusion Device into Superior Vena Cava, Percutaneous Approach (ICD-10-PCS; 2020-02-18)
PROC: B548ZZA Ultrasonography of Superior Vena Cava, Guidance (ICD-10-PCS; 2020-02-18)
PROC: 5A09357 Assistance with Respiratory Ventilation, Less than 24 Consecutive Hours, Continuous Positive Airway Pressure (ICD-10-PCS; 2020-02-18)
PROC: 5A09357 Assistance with Respiratory Ventilation, Less than 24 Consecutive Hours, Continuous Positive Airway Pressure (ICD-10-PCS; 2020-02-21)
DX: A41.9 Sepsis, unspecified organism (principal); U07.1 COVID-19; J12.82 Pneumonia due to coronavirus disease 2019; J80 Acute respiratory distress syndrome; E43 Unspecified severe protein-calorie malnutrition; R65.21 Severe sepsis with septic shock; N17.9 Acute kidney failure, unspecified; E87.1 Hypo-osmolality and hyponatremia; J44.0 Chronic obstructive pulmonary disease with (acute) lower respiratory infection; J44.1 Chronic obstructive pulmonary disease with (acute) exacerbation; E87.2 Acidosis; I48.20 Chronic atrial fibrillation, unspecified; N18.4 Chronic kidney disease, stage 4 (severe); Z99.11 Dependence on respirator [ventilator] status; I69.951 Hemiplegia and hemiparesis following unspecified cerebrovascular disease affecting right dominant side; E88.09 Other disorders of plasma-protein metabolism, not elsewhere classified; E83.51 Hypocalcemia; I46.9 Cardiac arrest, cause unspecified; E11.65 Type 2 diabetes mellitus with hyperglycemia; R74.01 Elevation of levels of liver transaminase levels; G89.4 Chronic pain syndrome; E66.01 Morbid (severe) obesity due to excess calories; E87.5 Hyperkalemia; E83.39 Other disorders of phosphorus metabolism; E83.41 Hypermagnesemia; E80.6 Other disorders of bilirubin metabolism; D69.6 Thrombocytopenia, unspecified; R13.10 Dysphagia, unspecified; R53.81 Other malaise; E78.5 Hyperlipidemia, unspecified; I12.9 Hypertensive chronic kidney disease with stage 1 through stage 4 chronic kidney disease, or unspecified chronic kidney disease; E11.22 Type 2 diabetes mellitus with diabetic chronic kidney disease; Z88.6 Allergy status to analgesic agent; Z88.5 Allergy status to narcotic agent; Z88.2 Allergy status to sulfonamides; Z68.28 Body mass index [BMI] 28.0-28.9, adult; Z87.891 Personal history of nicotine dependence; Z79.01 Long term (current) use of anticoagulants
CPT/HCPCS: 36415; 36600; 71045; 80048; 80053; 81000-TC; 82550-TC; 82728; 82803-TC; 82962; 83605; 83615-TC; 83735-TC; 83880; 84100-TC; 84484; 85007; 85025; 85027; 85379; 85384-TC; 85610-TC; 85651-TC; 85730-TC; 86140; 87040-TC; 87070-TC; 87086; 87186-TC; 87205-TC; 87230-TC; 92950; 93005; 94002; 94003; 94640; 94660; 94664; 94760; 96361; 96372; 96374; 96375; 99291; J0171; J0360; J0456; J0696; J1100; J1644; J1815; J2001; J2060; J2270; J2543; J2704; J3370; J7030; J7050; J7060; Q0144; U0003